=== PATIENT | female | born 1980 ===

== ENCOUNTER 2021-05-13 07:32 | Outpatient (RCR) | payer BC, SELFPAY ==
[2021-05-13 07:47] VITALS: BP 129/85; PULSE 85; RESP 20; TEMP 36.2; O2SAT 98
[2021-05-13] MEDS: ACETAMINOPHEN 325 MG TABLET 650 MG PO (07:50)
[2021-05-13] MEDS: FAMOTIDINE 20 MG TABLET PO (07:50)
[2021-05-13] MEDS: diphenhydrAMINE HCl CAP 25 MG CAPSULE PO (07:50)
[2021-05-13 09:10] VITALS: BP 130/75
--- NOTE | 2021-05-13 09:13 | PC.NURSE ---
IV removed and site looks good.
--- NOTE | 2021-05-14 09:15 | PC.NURSE ---
Patient states she is feeling better after covid infusion.
== END 2021-05-13 16:10 ==
LOC: AMCINF 07:32
PROVIDERS: PCP Family Medicine; Visit Provider Internal Medicine Hematology & Oncology
DX: U07.1 COVID-19 (principal)
CPT/HCPCS: A9270; M0245; Q0245